=== PATIENT | female | born 1965 | race American Indian/Alaskan Native ===

== ENCOUNTER 2019-04-24 13:19 | Emergency (ER) | payer BC ==
[~2019-04-24] VITALS: Ht 165.1 cm; Wt 65.8 kg
[2019-04-24 13:50] VITALS: BP 138/84
[2019-04-24] MEDS ORDERED: PHENAZOPYRIDINE HCL PO STA (14:13)
[2019-04-24] MEDS ORDERED: ULTRAM PO STA (14:13)
--- NOTE | 2019-04-24 14:16 | ER.PDOC ---
General Chief Complaint: Female Urogenital Problems Stated Complaint: POSS UTI Time seen by MD: 14:11 Source: patient Exam Limitations: no limitations History of Present Illness Timing/Duration: week Severity/Quality: mild, burning Location of Pain: abdominal pain LMP (females 10-50): postmenopause Care: none Sexual [place] History: less than 2 months ago Contraceptive: none Associated Symptoms: abdominal pain, fever/chills, urinary frequency Prior symptoms/Treatment: Similar symptoms previous Allergies: Coded Allergies: No Known Allergies (Unverified , 04/24/19) Past Medical History Medical History: no pertinent history Surgical History: appendectomy, , tubal LMP (females 10-50): postmenopause Social History Alcohol Use: occassionally Drug Use: none Reviewed Nursing Reviewed: Vital Signs, Abn. 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 NML as Tested, No Motor/Sensory Deficits, Alert, Normal Mood/Affect, Oriented x 3 Skin: Normal Color, Warm/Dry Lymphatic: No Adenopathy Results/Orders Results/Orders Orders - DANYELL DUNN MD Urinalysis (04/24/19 14:12) Tramadol Hcl (Ultram) (04/24/19 14:13) Phenazopyridine Hcl (Phenazopyridine Hcl (04/24/19 14:13) Urine Culture (04/24/19 14:00) Vital Signs Date Time Temp Pulse Resp B/P (MAP) Pulse Ox O2 Delivery O2 Flow Rate FiO2 04/24/19 13:50 98.4 77 18 97 04/24/19 13:50 98.4 77 18 138/84 (102) 97 Room Air 04/24/19 13:50 98.4 77 18 Administered Medications Medications (Trade) Dose Ordered Sig/[place] Route PRN Reason Start Time Stop Time Status Last Admin Dose Admin Phenazopyridine HCl (Phenazopyridine HCl) 200 mg STAT STAT PO 04/24/19 14:13 04/24/19 14:15 DC 04/24/19 14:10 200 MG Tramadol HCl (Ultram) 100 mg STAT STAT PO 04/24/19 14:13 04/24/19 14:15 DC 04/24/19 14:10 100 MG Laboratory Tests Test 04/24/19 14:00 Urine Collection Type UNKNOWN Urine Color YELLOW (YELLOW) Urine Appearance HAZY (CLEAR) H Urine Bilirubin NEGATIVE MG/DL (NEGATIVE) Urine Ketones NEGATIVE (NEGATIVE) Urine Specific [place] 1.005 (1.005-1.035) Urine pH 7 (5.0-6.0) Urine Protein NEGATIVE (NEGATIVE) Urine Urobilinogen NORMAL (NEGATIVE) Urine Nitrate NEGATIVE (NEGATIVE) Urine Leukocyte Esterase NEGATIVE (NEGATIVE) Urine Blood NEGATIVE (NEGATIVE) Urine RBC NONE SEEN RBC/HPF (NONE Urine WBC 5-10 WBC/HPF (0-2) H Urine Squamous Epithelial Cells MODERATE #/HPF (FEW) Urine Bacteria FEW (NONE SEEN) H Urine Glucose NORMAL (NEGATIVE) Course Vitals & review Data Vital Sign - Last 24 Hours 04/24/19 04/24/19 04/24/19 13:50 13:50 13:50 Temp 98.4 98.4 98.4 Pulse 77 77 77 Resp 18 18 18 B/P (MAP) 138/84 (102) Pulse Ox 97 97 O2 Delivery Room Air Laboratory Tests Test 04/24/19 14:00 Urine Collection Type UNKNOWN Urine Color YELLOW Urine Appearance HAZY Urine Bilirubin NEGATIVE MG/DL Urine Ketones NEGATIVE Urine Specific [place] 1.005 Urine pH 7 Urine Protein NEGATIVE Urine Urobilinogen NORMAL Urine Nitrate NEGATIVE Urine Leukocyte Esterase NEGATIVE Urine Blood NEGATIVE Urine RBC NONE SEEN RBC/HPF Urine WBC 5-10 WBC/HPF Urine Squamous Epithelial Cells MODERATE #/HPF Urine Bacteria FEW Urine Glucose NORMAL O2 Sat by Pulse Oximetry: 97 Departure Time of Disposition: 14:55 Disposition: 01 HOME, SELF-CARE Impression: Primary Impression: Cystitis Condition: Improved Referrals: PCP,UNKNOWN (PCP) PRIMARY CARE PROVIDER Duration or Time Spent with Pa: DANYELL Calvo MD Apr 24, 2019 14:16
[2019-04-24] MEDS ORDERED: ULTRAM ONE (14:18)
[2019-04-24] MEDS ORDERED: PHENAZOPYRIDINE HCL PO ONE (14:18)
[2019-04-24 14:25] LABS: BILIRUBIN,URINE NEGATIVE (NEGATIVE); UROBILINOGEN,URINE NORMAL (NEGATIVE)
[2019-04-24 14:26] LABS: APPEARANCE,URINE HAZY (CLEAR); UA COLOR YELLOW (YELLOW)
== END 2019-04-24 14:59 | disposition home or self-care (01) ==
LOC: ER 13:19
DX: N30.90 Cystitis, unspecified without hematuria (principal)
CPT/HCPCS: 81000; 87086; 99283